=== PATIENT | male | born 2000 | race Asian ===

== ENCOUNTER → 2018-07-15 01:59 | Emergency (ER) | payer OTHER ==
[~2018-07-15 01:59] MED LIST: Ibuprofen TAB* 600 MG PO ONE
[2018-07-15 02:06] VITALS: BP 128/87
--- NOTE | 2018-07-15 03:48 | ED ---
Upper Extremity Pain - HPI Summary HPI Summary: This patient is a 18 year old M presenting to [facility] with a chief complaint of L hand pain that began earlier tonight after falling. The patient rates the pain 4 /10 in severity. Symptoms aggravated by nothing. Symptoms alleviated by nothing. Patient reports swelling in L hand. - History of Current Complaint Chief Complaint: EDExtremityUpper Stated Complaint: "POS R DISLOCATED HAND" PER PT Time Seen by Provider: 07/15/18 03:27 Hx Obtained From: Patient Mechanism Of Injury: Fall From A Standing Position Onset/Duration: Started Hours Ago, Traumatic, Still Present Timing: Constant Severity Initially: Moderate Severity Currently: Moderate Pain Location: Hand Aggravating Factor(s): Nothing Alleviating Factor(s): Nothing Associated Signs & Symptoms: Positive: Swelling - Allergies/Home Medications Allergies/Adverse Reactions: Allergies Allergy/AdvReac Type Severity Reaction Status Date / Time Penicillins Allergy Hives Verified 07/15/18 02:02 PMH/Surg Hx/FS Hx/Imm Hx Previously Healthy: Yes Opthamlomology History: Denies: Hx Legally Blind EENT History: Denies: Hx Deafness Infectious Disease History: No Infectious Disease History: Denies: Traveled Outside the [place] in Last 30 Days - Family History Known Family History: Positive: Diabetes - Social History Occupation: Student Lives: Dormitory/Roommates Alcohol Use: None Hx Substance Use: No Substance Use Type: Reports: None Hx Tobacco Use: No Smoking Status (MU): Never Smoked Tobacco Review of Systems Negative: Fever Positive: Edema, Other - Positive L hand pain All Other Systems Reviewed And Are Negative: Yes Physical Exam - Summary Physical Exam Summary: Appearance: Well appearing, no pain distress Skin: warm, dry, reflects adequate perfusion, mild abrasion on left hand Head/face: normal Eyes: EOMI, CAREN ENT: normal Neck: supple, non-tender Respiratory: CTA, breath sounds present Cardiovascular: RRR, pulses symmetrical Abdomen: non-tender, soft Musculoskeletal: Tenderness over the right hand in the lateral aspect. strength/ ROM intact Neuro: normal, sensory motor intact, A&Ox3 Triage Information Reviewed: Yes Vital Signs On Initial Exam: Initial Vitals Temp Pulse Resp BP Pulse Ox 99.1 F 91 16 128/87 97 07/15/18 02:02 07/15/18 02:02 07/15/18 02:02 07/15/18 02:02 07/15/18 02:02 Vital Signs Reviewed: Yes Diagnostics - Vital Signs Vital Signs Temp Pulse Resp BP Pulse Ox 07/15/18 02:02 99.1 F 91 16 128/87 97 - Laboratory Lab Statement: Any lab studies that have been ordered have been reviewed, and results considered in the medical decision making process. - Radiology Hand XR Radiology Interpretation Completed By: ED Physician Summary of Radiographic Findings: Hand XR reveals, per ED physician, fractured 5th metacarpal. Course/Dx - Course Course Of Treatment: This patient is a 18 year old M presenting to [facility] with a chief complaint of L hand pain that began earlier tonight after falling. Physical Exam Findings: Tenderness over the right hand in the lateral aspect. Mild abrasion. Hand XR reveals, per ED physician, fractured 5th metacarpal. In the ED course the patient was given Ibuprofen. Patient will be discharged with follow up from orthopedics. The patient is agreeable with this plan. - Diagnoses Differential Diagnosis/HQI/PQRI: Positive: Fracture (Closed), Sprain Provider Diagnoses: Fracture, metacarpal Discharge - Sign-Out/Discharge Documenting (check all that apply): Patient Departure - Discharge home Patient Received Moderate/Deep Sedation with Procedure: No - Discharge Plan Condition: Stable Disposition: HOME Prescriptions: Ibuprofen TAB* [Motrin TAB* 600 MG] 600 mg PO Q8H PRN #15 tab MDD 3 PRN Reason: Pain Patient Education Materials: Hand Fracture (ED) Referrals: Jill Tomlinson NP [Primary Care Provider] - 2 Days Tino Ureña MD [Medical Doctor] - 2 Days Additional Instructions: RETURN TO THE EMERGENCY DEPARTMENT FOR NEW OR WORSENING SYMPTOMS - Billing Disposition and Condition Condition: STABLE Disposition: Home - Attestation Statements Document Initiated by Scribe: Yes Documenting Scribe: Annel Terrell Provider For Whom Kathyibzaid is Documenting (Include Credential): Dr. Tarik Toussaint MD Scribe Attestation: Annel Brownlee scribed for Dr. Tarik Toussaint MD on 07/15/18 at 0421. Scribe Documentation Reviewed: Yes Provider Attestation: The documentation as recorded by the Annel correa accurately reflects the service I personally performed and the decisions made by me, Dr. Tarik Toussaint MD Status of Scribe Document: Viewed
== END | disposition home or self-care (01) ==
LOC: ED 01:59
DX: S62.396A Other fracture of fifth metacarpal bone, right hand, initial encounter for closed fracture (principal); W19.XXXA Unspecified fall, initial encounter; Z88.0 Allergy status to penicillin
CPT/HCPCS: 99282; A9270-GY

== ENCOUNTER 2018-07-25 11:32 | Day surgery (SDC) | payer OTHER ==
[~2018-07-25 11:32] MED LIST changes: +Buffered Lidocaine 1% SYRIN* 1 ML/SYRINGE INTRADERM ONE; -Ibuprofen TAB* 600 MG PO ONE; +Lactated Ringers 1000 ML Bag* 1,000 ML IV SCH
[2018-07-25] MEDS ORDERED: Clindamycin 900 MG IVPREMIX(* 900 MG/50 ML SDV IV ONE (11:37)
[2018-07-25] MEDS ORDERED: Bupivacaine 0.5% SDV PF* 30ML VIAL ONE (11:55)
[2018-07-25] MEDS ORDERED: Midazolam* 1 MG/ML 5 ML VIAL (5 MG) ONE (13:10)
[2018-07-25] MEDS ORDERED: fentaNYL* 50 MCG/ML 2 ML VIAL (100 MCG VIAL) ONE (13:33)
[2018-07-25] MEDS ORDERED: Propofol* 10 MG/ML 20 ML BTL ONE (13:42)
[2018-07-25] MEDS ORDERED: fentaNYL* 50 MCG/ML 2 ML VIAL (100 MCG VIAL) IV PRN (14:07)
[2018-07-25] MEDS ORDERED: Ondansetron INJ* 2 MG/ML VIAL IV PRN (14:07)
[2018-07-25] MEDS ORDERED: Naloxone* 0.4 MG/ML 1 ML VIAL IV PRN (14:07)
[2018-07-25] MEDS ORDERED: oxyCODONE/Acetamin 5/325 MG* TAB PO PRN (14:07)
[2018-07-25] MEDS ORDERED: Ketorolac INJ* 30 MG/ML 1 ML VIAL ONE (14:08)
[2018-07-25 14:28] VITALS: BP 125/71
--- NOTE | 2018-07-25 20:47 | OP ---
DATE OF OPERATION: 07/25/18 [facility] DATE OF : 89 SURGEON: Freda Benson MD. EMPLOYEE WELFARE MANAGER: MALCOLM Chino. ANESTHESIA: Local MAC. PRE-OP DIAGNOSIS: Displaced fracture of the right fifth metacarpal. POST-OP DIAGNOSIS: Displaced fracture of the right fifth metacarpal. OPERATIVE PROCEDURE: Closed reduction and internal fixation of the right fifth metacarpal. ESTIMATED BLOOD LOSS: Zero. INDICATIONS: Lam is a 18-year-old male who injured his right hand when he fell. He has a displaced fracture of the fifth metacarpal neck. He presents for closed reduction and internal fixation. DESCRIPTION OF PROCEDURE: The patient was brought to the operating room, was given a sedation anesthetic and local infiltration with total of 17 cc of 0.5% Marcaine plain. Skin of his right hand and forearm was prepped and draped in the usual sterile fashion. The fracture was manipulated and reduced and visualized on the C- arm. A guidewire from the [employer] intramedullary screw was placed through the distal fragment and down the center of the metacarpal shaft. Position of the guidewire was checked on the C-arm in the AP and lateral views. Small incision was made and then the guidewire was overdrilled with the appropriate drill and a 40 mm screw was placed. Its position was checked on the C-arm on the AP and lateral views and found to be satisfactory. The guidewire was removed. The wound was irrigated and the skin edges were approximated with 4-0 nylon suture. The wound was dressed with Xeroform, 4x4, Webril, and an Corey wrap. The patient tolerated the procedure well and was brought to the recovery room in good condition. [id number]/[facility] #: [id number] [facility] CENTERFlorentin
== END 2018-07-25 14:47 | disposition home or self-care (01) ==
LOC: OREAST 11:32
PROVIDERS: ATTEND Orthopaedic Surgery
DX: S62.336A Displaced fracture of neck of fifth metacarpal bone, right hand, initial encounter for closed fracture (principal); W19.XXXA Unspecified fall, initial encounter; Y92.9 Unspecified place or not applicable; Z88.0 Allergy status to penicillin; Z91.010 Allergy to peanuts
CPT/HCPCS: 76000; C1713; J1885; J2250; J2704; J3010; J3490